=== PATIENT | female | born 1990 | race Caucasian/White ===

== ENCOUNTER 2025-07-21 07:52 | Outpatient (CLI) | payer OTHER, SELFPAY ==
--- OUTSIDE RECORDS SUMMARY | 2025-07-21 08:00 | XMS_ITS | Clinical Summary ---
Author Organization [facility] Address [facility] [place] [address] Care Team Providers Care Hosting Engineer Name Role Phone No, Physician Primary Care Provider [phone] Allergies No known active allergies Medications levothyroxine (SYNTHROID) 100 mcg tablet Take 1 tablet (100 mcg total) by mouth worship pastor before breakfast Active 50-kdfp-iwregv 6-dha 30 mg iron-1mg -200 mg capsule Take by mouth daily Active ibuprofen (ADVIL,MOTRIN) 800 mg tablet Take 1 tablet (800 mg total) by mouth every 8 (eight) hours as needed for pain (pain) 30 tablet 4 Active miSOPROStoL (CYTOTEC) 200 mcg tablet Insert 4 tablets (800 mcg total) into the vagina once for [address] 4 tablets vaginally as instructed 4 tablet 4 Active Active Problems Problem Noted Date Diagnosed Date Spontaneous 11/11/2024 Comments Yes Surgical History Surgery Date Site/Laterality Comments CERVICAL BIOPSY W/ LOOP ELEC TRODE EXCISION 11/17/2014 - 11/16/2015 Medical History Medical History Date Comments Hypothyroidism Depression Social History Tobacco Use Types Packs/Day Years Used Date Smoking Tobacco: Former Cigarettes Smokeless Tobacco: Never Tobacco Cessation:Counseling Given: Not Answered AUDIT-C Answer Date Recorded Q1: How often do you have a drink containing alcohol? Never 11/11/2024 Q2: How many drinks containi ng alcohol do you have on a typical day when you are drinking? Patient does not drink 4 Q3: How often do you have si x or more drinks on one occasion? Never 11/11/2024 Personal Safety Answer Date Recorded Have you ever been in or are you currently in a harmful physical or emotional relationship or is someone making you feel afraid or unsafe? 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 Gender Identity Not on file Sexual Orientation Not on file Obstetrics History Para Term AB IAB SAB Ectopic Multiple Livin g Live Births 1 Date Outcome GA Total Labor Labor/2nd/3rd Weight Sex Type Anes PTL Zuly A1 A5 Name Clin Current Last Filed Vital Signs Vital Sign Reading Time Taken Comments Blood Pressure 124/75 11/11/2024 10:39 AM DINKEY OPERATOR Pulse 82 11/11/2024 10:39 AM DINKEY OPERATOR Temperature 37.1 C (98.7 F) 11/11/2024 10:39 AM DINKEY OPERATOR Respiratory Rate 18 11/11/2024 10:3 9 AM DINKEY OPERATOR Oxygen Saturation 100% 11/11/2024 10: 39 AM DINKEY OPERATOR Inhaled Oxygen Concentration - - Weight 101.6 kg (223 lb 14.4 oz) 11/11/2024 9:40 AM DINKEY OPERATOR Height 172.7 cm (5' 8) 11/11/2024 9:40 AM DINKEY OPERATOR Body Mass Index 34.04 11/11/2024 9:40 AM DINKEY OPERATOR Plan of Treatment Health Maintenance Due Date Last Done Comments Cervical Cancer Screening 1991 Depression Screening 1991 Hepatitis C Screening 1991 Varicella Vaccines (1 of 2 - 13+ 2-dose series) 2004 Regular Well Visit/Exam 18-64 2009 HPV Vaccines (1 - 3-dose SCDM series) 2018 Influenza Vaccine (#1) 2025 12/03/2022, 2018 DTaP/Tdap/Td Vaccine (7 - Td or Tdap) 01/31/2027 01/31/2017, 05/21/2005, 04/19/1996, Additional history exists Hepatitis B Screening Completed 03/05/2001 , 10/14/2000, 09/05/2000 Pneumococcal vaccine <65 Aged Out No longer eligible based on patient's age to complete this topic Insurance [facility] Care Teams Hosting Engineer Relationship Specialty Start Date End Date No, Physician PCP - General 11/11/24
--- NOTE | 2025-08-10 12:33 | WPDHOMESLEEP ---
Sleep Study - Home Unattended Date of Study: 07/21/25 Ordering Provider: Aan Paula Chacon NP Interpreting Provider: Fabi Price DO Home Sleep Study Type: Watch PAT Height: 1.73 m Weight: 100.244 kg Body Mass Index: 33.5 Neck Circumference (inches): 15 [place]: 16 Reason for Sleep Study Excessive daytime sleepiness Sleep History The patient is a 35-year-old female that had a sleep study ordered by her primary care for evaluation of sleep apnea. The patient admits to snoring loudly, excessive daytime sleepiness and interruptions in breathing while asleep. She does choke or gasp at night. She denies having trouble breathing on her back. She does have morning headaches. She does have a dry or sore mouth / throat in the morning. She denies nocturnal heartburn. She urinates twice throughout the night. She denies having difficulty falling asleep. She does have difficulty staying asleep. She will have difficulty returning to sleep if she wakes up throughout the night. She denies any hypnotic or sedative use. She denies feeling anxious about sleep. She does feel tired or sleepy during the day. She does feel tired in the morning. She does have the urge to fall asleep during the day. She denies feeling drowsy while driving. She denies sleep paralysis, cataplexy and hypnagogic/ hypnopompic hallucinations. She does clench or grind her teeth. She denies kicking or jerking her legs excessively. She denies having a restless feeling in her legs. She goes to bed at 9:30 p.m. on work days and at 10:00 p.m. on her days off. It takes her 1 hour to fall asleep. She gets 9 hours of sleep on work days and 7 hours and 15 minutes of sleep on her days off. Her sleep is a little more restorative on her days off. She denies taking any planned naps. She denies dream enactment behavior. She denies sleep walking. She consumes 1-2 cups of caffeinated beverage per day. She denies tobacco and alcohol use. She denies exercising on a regular basis. [facility] Past Medical History Medical History Thyroid disorder Depression Anxiety Surgical History Surgical History H/O LEEP (~2013) cervical precancer Family History Family History Mother Colorectal cancer, stage III Father Hypertension Grandparent Breast cancer Cerebrovascular accident Social History Social History Smoking status: Never smoker Alcohol intake: former Substance use type: does not use Lack of Transportation: No Lack of Food: Never True Current Housing: I Have Housing Concerned About Future Housing: No Difficulty Paying Gas/Electric Bills: No Difficulty Paying for Meds: No Currently Unemployed: No Education: Bachelor's Degree Difficulty w/ Childcare or Family Care: No Medications Home Medications ?Medication ?Instructions ?Recorded ?Confirmed ?Type levothyroxine 100 mcg tablet 100 mcg PO DAILY #90 tabs 07/05/25 07/05/25 Rx (Synthroid) Sleep Procedure The sleep study was completed using [employer] a technically adequate device with seven channels: peripheral arterial tone, actigraphy, body position, snore, respiratory movement, pulse oximetry, sleep staging, and heart rate. Prior to using the device, the patient received verbal and written instructions for its application and was provided with the help desk phone number for additional telephonic instruction with 24-hour availability of qualified personnel to answer questions. The study was scored using CMS guidelines. Sleep Architecture The total recording time is 9 hrs, 32 min. The total sleep time is 8 hrs, 23 min. Sleep latency is 19 minutes. REM latency is 147 minutes. The patient had 9 episodes of waking. Sleep architecture shows 28.2% deep sleep, 49.9% light sleep, and (as % Total Sleep Time) showed NREM (Light 49.9%; Deep 28.2%), and a 21.9% stage REM. The patient spent 73.8% of total sleep time in the supine position. Sleep efficiency was 87.94. Respiratory Analysis The overall AHI (pAHI 4%:) is 0.4. The overall AHI (pAHI 3%:) is 0.6. The central AHI is 0.0. The AHI was 0.2 in NREM and 2.2 in REM sleep. The AHI was 0.5 in Supine and 0.9 in Non-supine sleep. Percent of Jagjit Kaye respirations is 0.0. Oximetry Data The oxygen desaturation index (JUANA 4%:) is 0.1. The mean saturation is 97%, and the lowest saturation is 92%. Time spent with saturation < 88% is 0.0 minutes. Snoring Profile Snoring average intensity is 41 dB. The patient snored above 45 decibels for 10.5 minutes, 2.1% of sleep time. Cardiac Profile The average pulse rate is 73 beats per minutes. The lowest pulse rate is 56 bpm. The highest pulse rate reported is 108 bpm. Atrial fibrillation was not detected. Premature beats occur 0.5 per minute. Assessment and Plan Assessment and Plan (1) Excessive daytime sleepiness: Code(s): G47.19 - Other hypersomnia Status: Acute Assessment and Plan: The patient had an overall AHI of 0.4 with desaturation down to 92%. This is not consistent with sleep-disordered breathing. Due to the severity of the patient's hypersomnia, further evaluation is warranted. I recommend that the patient have a polysomnogram followed by [facility]. The patient should not take a sleeping aid for this study. She should also refrain from napping on the day of the polysomnogram. Data The data obtained during this sleep study is adequate for interpretation. Certification This sleep study has been reviewed by a board certified sleep medicine physician.
[2025-08-10 14:30] VITALS: BMI 33.5
== END 2025-07-22 10:30 | disposition home or self-care (01) ==
LOC: ANHCSM 07:54
PROVIDERS: PCP Nurse Practitioner; Visit Provider Nurse Practitioner
DX: G47.9 Sleep disorder, unspecified (principal); G47.19 Other hypersomnia
CPT/HCPCS: 95800